=== PATIENT | male | born 1955 | race Caucasian/White ===

== ENCOUNTER 2025-09-07 06:49 | Emergency (ER) | payer OTHER, MEDICARE, SELFPAY ==
[2025-09-07] VITALS (11 sets, daily range): BP systolic 155–213; BP diastolic 79–104; PULSE 79–95; RESP 12–22; TEMP 36.6; O2SAT 93–98; BMI 22.7
--- NOTE | 2025-09-07 06:54 | DI.RAD.S_ITS ---
PROCEDURE: XR CHEST 1V INDICATIONS: chest pain TECHNIQUE: One view of the chest was acquired. COMPARISON: None. FINDINGS: Surgical changes and devices: None. Lungs and pleura: No consolidation. No pleural effusions or pneumothorax. Mediastinum: Mediastinal contours appear normal. Heart size is normal. Bones and chest wall: No suspicious bony lesions. Overlying soft tissues appear unremarkable. IMPRESSION: No acute cardiopulmonary abnormality is seen. Dictated by: Jamey Casiano M.D. on 09/07/2025 at 9:05 Approved by: Jamey Casiano M.D. on 09/07/2025 at 9:06
--- NOTE | 2025-09-07 07:23 | EKG_ITS ---
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
--- NOTE | 2025-09-07 07:38 | ED_ITS ---
HPI - Chest Pain General Chief Complaint: Chest Pain Stated Complaint: LT side chest pain; tingles in fingers; SOB Time Seen by Provider: 09/07/25 06:53 Source: patient Mode of arrival: Ambulatory Limitations: no limitations History of Present Illness HPI narrative: 70-year-old male history of hypertension with complaint of left-sided chest discomfort that woke him up from sleep at about 4:00 a.m. this morning. Patient states it does not radiate anywhere. It has been constant he has felt a little bit tingling he denies any alleviating or exacerbating factors but states it is pretty much gone at this point. He notes he felt a little bit short of breath. He denies any sweatiness but felt hot. No nausea or vomiting. No syncope. No swelling in extremities. No issues with bowel movements or urination. Has a little bit of cough, no fevers or chills. Patient states he had a brief episode that was similar a couple days ago and then went in mode his lawn with a push more which made him feel better. He states he takes medication for hypertension, no other daily medications no aspirin or thinners. He states it is only surgery was a dental extraction 3 weeks ago. No drug allergies. No tobacco, drinks 2-3 alcoholic drinks nightly, no recreational drugs. Denies any cardiac family history. Follows with a physician for his blood pressure medications on [facility]. Related Data Allergies Allergy/AdvReac Type Severity Reaction Status Date / Time No Known Drug Allergies Allergy Verified 09/07/25 07:10 Review of Systems Review of Systems ROS Unobtainable: All systems reviewed & are unremarkable except as noted in HPI and below Patient History Surgical History History of vasectomy Family History Brother Cancer Brother PTSD (post-traumatic stress disorder) Grandmother Heart disease Grandmother Stroke Mother Age: 94 Hypertension Social History Smoking Status: Never smoker Smoking Status: Never smoker Exam Narrative Exam Narrative: GENERAL: Alert and oriented x three, male in mild distress HEENT: Head normocephalic, atraumatic, EOMI, pupils reactive, face symmetric, moist mucous membranes NECK: Supple, full range of motion CARDIOVASCULAR: Regular rate and rhythm without murmurs, rubs or gallops. No reproducible chest pain. RESPIRATORY: Breath sounds equal bilaterally, no wheezes rales or rhonchi. ABDOMEN: Soft, nontender. Normoactive bowel sounds all 4 quadrants. No guarding or rebound, rigidity, no mass : No CVA tenderness EXTREMITIES: Normal range of motion, no clubbing or edema. Neurovascularly intact NEUROLOGICAL: Cranial nerves II through XII grossly intact. Moving all extremities SKIN: Warm, dry, no petechiae, no rashes or lesions. Initial Vital Signs Initial Vital Signs: Vital Signs Temperature 97.8 F 09/07/25 07:10 Pulse Rate 95 H 09/07/25 07:10 Respiratory Rate 16 09/07/25 07:10 Blood Pressure 183/93 H 09/07/25 07:10 Pulse Oximetry 98 09/07/25 07:10 Oxygen Delivery Method Room Air 09/07/25 07:10 Scores HEART Score Heart Score history: Moderately Suspicious Heart Score EKG: Normal Heart Score Age: > or = 65 years old Heart Score risk factors: 1-2 risk factors Heart Score troponin: < or = to normal limit Heart Score Total: 4 Course Orders Ordered: ED Orders 09/07/25 09:30 EKG-12 Lead Stat 09/07/25 09:40 Trop I [Troponin I] Stat Discontinued Medications Aspirin (Aspirin 81 Mg Chew Tab) 324 mg PO NOW ONE Stop: 09/07/25 07:38 Last Admin: 09/07/25 08:15 Dose: 324 mg Documented By: ERIK Vital Signs Vital signs: Vital Signs - 8 hr 09/07/25 11:20 Pulse Rate 87 Respiratory Rate 18 Blood Pressure 165/89 H Pulse Oximetry 95 Oxygen Delivery Method Room Air MDM - Chest Pain Lab Data 09/07/25 07:30 09/07/25 07:30 Labs: Lab Results 09/07/25 09/07/25 Range/Units 07:30 09:40 WBC 5.1 (4.5-11.0) X10^3/uL RBC 4.59 (4.5-5.9) X10^6/uL Hgb 14.2 (13.5-17.5) g/dL Hct 41.2 (41-53) % MCV 89.8 (80-100) fL MCH 31.0 (26-34) PG MCHC 34.5 (30-36) % RDW 13.1 (11.6-14.8) % Plt Count 272 (150-400) X10^3/uL Neut % (Auto) 47.7 L (50-75) % Lymph % (Auto) 37.3 (25-40) % [place] % (Auto) 10.4 (3-14) % Eos % (Auto) 3.8 (2-4) % Baso % (Auto) 0.8 (0-2) % Neut # (Auto) 2400 (1034-0811) /uL Lymph # (Auto) 1900 (4087-1894) /uL [place] # (Auto) 500 (0-900) /uL Eos # (Auto) 200 (0-450) /uL Baso # (Auto) 0 (0-100) /uL Sodium 135 L (137-145) mmol/L Potassium 4.2 (3.4-5.1) mmol/L Chloride 104 (98-107) mmol/L Carbon Dioxide 22 (22-32) mmol/L BUN 20 (9-20) mg/dL Creatinine 0.73 (0.66-1.25) mg/dL Estimated GFR > 60 (>60) mL/min BUN/Creatinine Ratio 27.4 H (6-22) Glucose 117 H (70-99) mg/dL Calcium 8.9 (8.4-10.2) mg/dL Total Bilirubin 0.5 (0.2-1.3) mg/dL AST 39 (17-59) IU/L ALT 24 (<50) IU/L Alkaline Phosphatase 60 (38-126) U/L Troponin I < 0.012 < 0.012 (0.01-0.034) ng/mL NT-Pro-B Natriuret Pep < 20 (<125) pg/mL Total Protein 7.5 (6.3-8.2) g/dL Albumin 4.4 (3.5-5.0) g/dL Globulin 3.1 (1.7-4.1) g/dL Albumin/Globulin Ratio 1.4 (1.0-2.8) Lipase 94 (23-300) U/L Urine Dip Bedside Urine Glucose Negative Bedside Urine Bilirubin - Negative Bedside Urine Ketone - Negative Urine Specific [place] 1.015 Bedside Urine Occult Blood - Negative Bedside Urine pH 6.0 Bedside Urine Protein - Negative Bedside Urine Urobilinogen - Negative Bedside Urine Nitrite - Negative Bedside Urine Leukocytes - Negative Esterase MDM Narrative Medical decision making narrative: Labs, white count of 5.1 hemoglobin of 14 platelets of 272. Chemistries shows sodium 135 electrolytes BUN and creatinine are appropriate, glucose is 117 LFTs are normal troponins less than 0.012 with a BNP of less than 20. Chest x-ray is negative for acute cardiopulmonary abnormality. Repeat troponins less than 0.012 EKG sinus rhythm rate 83 [place] 156 QRS 86 QTC of 427, no acute ST patient or depression. No prior for comparison. EKG 2. Shows sinus rhythm rate of 80, [place] 160 QRS is 76 QTC of 431. Patient does not have any acute ST-elevation or depression. Patient received aspirin 324 mg. Heart score is 4. Discussed with the patient findings from today need for follow up in the short term we would like for patient to take aspirin daily. Discharge Plan Departure Patient Disposition: Home Clinical Impression: Chest pain Instructions: DI for Chest Pain Activity Restrictions/Additional Instructions: Please follow up for recheck. I would recommend follow up for evaluation of your heart. We would recommend aspirin 81 mg daily until you see a physician. Please return if you develop new or concerning changes, fevers, chills, new shortness of breath, recurrent chest pain, new swelling in your extremities or other new or concerning changes. Referrals: Ney Hayes MD [Physician, Cardiology] Stand Alone Forms: Patient Portal/API
[2025-09-07 07:44] LABS: Add Manual Diff / Slide Review NO; Hematocrit 41.2 % (41-53); Hemoglobin 14.2 g/dL (13.5-17.5); Lymphocytes Absolute Auto 1900 /uL (1100-4500); Mean Corpuscular HGB Conc 34.5 % (30-36); Mean Corpuscular Hemoglobin 31.0 PG (26-34); Mean Corpuscular Volume 89.8 fL (80-100); Platelet Count 272 X10^3/uL (150-400)
[2025-09-07 07:57] LABS: Lipase 94 U/L (23-300)
[2025-09-07 07:58] LABS: Alanine Aminotransferase 24 IU/L (<50); Albumin 4.4 g/dL (3.5-5.0); Albumin Globulin Ratio 1.4 (1.0-2.8); Alkaline Phosphatase 60 U/L (38-126); Blood Urea Nitrogen 20 mg/dL (9-20); Calcium 8.9 mg/dL (8.4-10.2); Carbon Dioxide 22 mmol/L (22-32); Chloride 104 mmol/L (98-107); Estimated Glomerular Filt Rate > 60 mL/min (>60); Globulin 3.1 g/dL (1.7-4.1); Glucose 117 mg/dL (70-99); HEMOLYSIS 38 (0-50); Potassium 4.2 mmol/L (3.4-5.1); Sodium 135 mmol/L (137-145); Total Protein 7.5 g/dL (6.3-8.2)
[2025-09-07 08:06] LABS: NT-proBNP (BNP-Adult 18+) < 20 pg/mL (<125)
[2025-09-07 08:10] LABS: Troponin I < 0.012 ng/mL (0.01-0.034)
[2025-09-07] MEDS: ASPIRIN 81 MG CHEW TAB 324 MG PO (08:15)
--- NOTE | 2025-09-07 09:46 | EKG_ITS ---
[address] [address] Test Date: 2025-09-07 Pat Name: Pedro Alfaro Department: 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
[2025-09-07 10:13] LABS: Troponin I < 0.012 ng/mL (0.01-0.034)
== END 2025-09-07 11:20 | disposition home or self-care (01) ==
PROVIDERS: Student in an Organized Health Care Education/Training Program; Emergency Provider Emergency Medicine
DX: R07.89 Other chest pain (principal); R20.2 Paresthesia of skin; R06.02 Shortness of breath
CPT/HCPCS: 36415; 71045; 80053; 81003; 83690; 83880; 84484; 85025; 93005; 99283; 99284